=== PATIENT | female | born 1960 | race Caucasian/White ===

== ENCOUNTER 2018-08-20 22:15 | Emergency (ER) | payer MEDICAID ==
[2018-08-20] MEDS ORDERED: KETOROLAC TROMETHAMINE 30MG/ML ONE (23:16)
== END 2018-08-20 23:59 | disposition home or self-care (01) ==
LOC: EDH 22:15
DX: S46.012A Strain of muscle(s) and tendon(s) of the rotator cuff of left shoulder, initial encounter (principal); I10 Essential (primary) hypertension; E11.9 Type 2 diabetes mellitus without complications; J44.9 Chronic obstructive pulmonary disease, unspecified; Z86.73 Personal history of transient ischemic attack (TIA), and cerebral infarction without residual deficits; Z87.891 Personal history of nicotine dependence; X58.XXXA Exposure to other specified factors, initial encounter; Y93.89 Activity, other specified; Y92.89 Other specified places as the place of occurrence of the external cause; Y99.8 Other external cause status
CPT/HCPCS: 73030; 96372; 99284; J1885

== ENCOUNTER 2019-06-28 13:54 | Emergency (ER) | payer MEDICAID ==
[~2019-06-28 13:54] MED LIST: ASPI-555 PO; BUPR100T6 PO; CHOL500051 PO; Cetirizine Hcl 5 Mg Tablet PO; DOXY100T2 PO; FENO145T26 PO; HYDR12.54 PO; INSLAN SQ; INSU100V SQ; IPRA3AMP24 IH; LISI-613 PO; PRED20TA3 PO; SIMV40TA59 PO; TRAZ-258 PO
[2019-06-28] MEDS ORDERED: SODIUM CHLORIDE 0.9% 500ML 500 ML IV ONE (13:55)
[2019-06-28 15:08] LABS: BASOPHILS % (AUTO) 0.5 % (0.0-5.0); EOSINOPHILS % (AUTO) 7.9 % (0.0-8.0); HEMATOCRIT 39.4 % (36-48); LYMPHOCYTES % (AUTO) 19.1 % (21.0-51.0); MEAN CORPUSCULAR HEMOGLOBIN 29.1 pg (27.0-33.0); MEAN CORPUSCULAR HGB CONC 31.2 g/dL (32.0-36.0); MEAN CORPUSCULAR VOLUME 93.1 fL (79-99); NEUTROPHILS % (AUTO) 63.7 % (40.0-77.0); PLATELET COUNT (AUTO) 237 K/uL (130-400); RED BLOOD CELL COUNT(AUTO) 4.23 MIL/uL (4.00-5.50); RED CELL DISTRIBUTION WIDTH 13.4 % (11.0-15.5)
[2019-06-28 15:14] LABS: CREATININE 0.9 mg/dL (0.5-1.5); POTASSIUM 4.4 mmol/L (3.5-5.1)
[2019-06-28 15:18] LABS: INR 0.93 (0.85-1.15); PARTIAL THROMBOPLASTIN TIME 27.7 SEC (26.3-35.5); PROTHROMBIN TIME 10.1 SEC (9.6-11.6)
[2019-06-28 15:19] LABS: ALBUMIN 3.4 g/dL (3.5-5.0); BILIRUBIN,TOTAL 0.1 mg/dL (0.2-1.0); TOTAL PROTEIN, SERUM 6.9 g/dL (6.0-8.3)
[2019-06-28] MEDS ORDERED: CEFTRIAXONE SODIUM 2 GM VIAL ONE (16:12)
[2019-06-28] MEDS ORDERED: METHYLPREDNISOLONE SOD SUCC 125MG/2ML VIAL ONE (16:12)
[2019-06-28] MEDS ORDERED: ALBUTEROL INHALER 90MCG/INH IH ONE (16:15)
[2019-06-28 16:21] LABS: B-TYPE NATRIURETIC PEPTIDE 6 pg/mL (0-100)
[2019-06-28] MEDS ORDERED: AZITHROMYCIN 250 MG TABLET PO ONE (17:57)
== END 2019-06-28 19:04 | disposition home or self-care (01) ==
LOC: EDH 13:54
DX: J18.1 Lobar pneumonia, unspecified organism (principal); Z20.828 Contact with and (suspected) exposure to other viral communicable diseases; J44.9 Chronic obstructive pulmonary disease, unspecified; E11.9 Type 2 diabetes mellitus without complications; I10 Essential (primary) hypertension
CPT/HCPCS: 36415; 71045; 80053; 82550; 83605; 83880; 84484; 85025; 85610; 85730; 87635; 87804 ×2; 93005; 96374; 96375; 99285; J0696; J2930; J7040

== ENCOUNTER 2020-07-12 10:39 | Emergency (ER) | payer MEDICAID ==
[~2020-07-12 10:39] MED LIST changes: -ASPI-555 PO; +ASPI-556 PO; -LISI-613 PO; +LISI20TA24 PO
[2020-07-12] MEDS ORDERED: HYDROCODONE/ACETAMINOPHEN 7.5/325 MG TAB ONE (11:25)
== END 2020-07-12 13:28 | disposition home or self-care (01) ==
LOC: EDH 10:39
DX: M25.531 Pain in right wrist (principal); E66.01 Morbid (severe) obesity due to excess calories; J44.9 Chronic obstructive pulmonary disease, unspecified; E11.9 Type 2 diabetes mellitus without complications; I10 Essential (primary) hypertension; Z68.43 Body mass index [BMI] 50.0-59.9, adult; Z86.73 Personal history of transient ischemic attack (TIA), and cerebral infarction without residual deficits; Z98.890 Other specified postprocedural states
CPT/HCPCS: 73110